=== PATIENT | female | born 1995 | race Caucasian/White ===

== ENCOUNTER 2019-11-03 10:01 | Emergency (ER) | payer SELFPAY ==
--- NOTE | 2019-11-03 10:32 | ER Document Report ---
ED Medical Screen (RME) - General Chief Complaint: Numbness of Arm Stated Complaint: RIGHT ARM NUMBNESS Time Seen by Provider: 11/03/19 10:26 Primary Care Provider: RAHUL BAJWA MD [Primary Care Provider] - Follow up as needed Mode of Arrival: Ambulatory Notes: 24-year-old female presented to ED for complaint of numbness from the elbow to the fingers. She states that she was in the hospital in August for an infection to the arm due to IV drug use of cocaine about 3 months ago. She states she has not used any drugs at all in the last 3 months. She states she left AMA on September 12 when they wanted to keep her for another week. She states she had to go home and feed her family so she left AMA. She states she went to the orthopedic yesterday concerning her left shoulder that needs some repair due to rotator cuff injury and [id number] in the shoulder. Patient states that when she went to the doctor he told her that she needed to go to the doctor the hospital concerning the pain and her right arm because it was probably a medial nerve injury. Patient is alert oriented respirations regular nonlabored speaking in full sentences. I have greeted and performed a rapid initial assessment of this patient. A comprehensive ED assessment and evaluation of the patient, analysis of test results and completion of medical decision making process will be conducted by an additional ED providers. TRAVEL OUTSIDE OF THE [place] IN LAST 30 DAYS: No - Related Data Allergies/Adverse Reactions: No Known Allergies Allergy (Unverified 11/03/19 10:29) Doctor's Discharge - Discharge Referrals: RAHUL BAJWA MD [Primary Care Provider] - Follow up as needed
--- NOTE | 2019-11-03 11:02 | RADIOLOGY REPORT (SQ) ---
EXAM DESCRIPTION: ELBOW RIGHT OVER 2 VIEWS COMPLETED DATE/TIME: 11/03/2019 10:53 am REASON FOR STUDY: Numbness to the right arm and hand COMPARISON: None. NUMBER OF VIEWS: Four view. TECHNIQUE: AP, lateral, and both oblique radiographic images acquired of the right elbow. LIMITATIONS: None. FINDINGS: MINERALIZATION: Normal. BONES: No acute fracture or dislocation. No worrisome bone lesions. No significant osteophytes. JOINT: No effusions. SOFT TISSUES: No soft tissue swelling. No foreign body. OTHER: No other significant finding. IMPRESSION: NEGATIVE STUDY OF THE RIGHT ELBOW. NO EXPLANATION FOR PAIN. TECHNICAL DOCUMENTATION: JOB ID: [id number] 2010 [employer]- All Rights Reserved Reading location - IP/workstation name: [email or web address]
--- NOTE | 2019-11-03 11:02 | RADIOLOGY REPORT (SQ) ---
EXAM DESCRIPTION: SHOULDER RIGHT 2 OR MORE VIEWS COMPLETED DATE/TIME: 11/03/2019 10:52 am REASON FOR STUDY: Numbness to the right arm and hand COMPARISON: None. NUMBER OF VIEWS: Three views. TECHNIQUE: Internal rotation, external rotation, and Y view images acquired of the right shoulder. LIMITATIONS: None. FINDINGS: MINERALIZATION: Normal. BONES: No acute fracture. No worrisome bone lesions. JOINTS: No dislocation. VISUALIZED LUNGS AND RIBS: No pneumothorax. No rib fracture. SOFT TISSUES: No radiopaque foreign body. OTHER: No other significant finding. IMPRESSION: NEGATIVE STUDY OF THE RIGHT SHOULDER. NO RADIOGRAPHIC EVIDENCE OF ACUTE INJURY. TECHNICAL DOCUMENTATION: JOB ID: [id number] 2010 [employer]- All Rights Reserved Reading location - IP/workstation name: [email or web address]
[2019-11-03] MEDS ORDERED: ACETAMINOPHEN 325 MG TABLET PO ONE (11:03)
[2019-11-03 11:46] LABS: ABSOLUTE LYMPHOCYTES (AUTO) 1.6 10^3/uL (0.5-4.7); ABSOLUTE MONOCYTES (AUTO) 0.4 10^3/uL (0.1-1.4); ABSOLUTE NEUT (AUTO) 3.3 10^3/uL (1.7-8.2); BASOPHILS % (AUTO) 0.6 % (0-2); EOSINOPHILS % (AUTO) 0.7 % (0-6); HEMATOCRIT 33.6 % (36.0-47.0); LYMPHOCYTES % (AUTO) 29.4 % (13-45); MEAN CORPUSCULAR HGB CONC 32.9 g/dL (32.0-36.0); MEAN CORPUSCULAR VOLUME 82 fl (80-97); MONOCYTES % (AUTO) 7.8 % (3-13); PLATELET COUNT 238 10^3/uL (150-450); RED BLOOD COUNT 4.09 10^6/uL (3.72-5.28); RED CELL DISTRIBUTION WIDTH 17.4 % (11.5-14.0); SEGMENTED NEUTROPHILS % (AUTO) 61.5 % (42-78); TOTAL CELLS COUNTED % (AUTO) 100 %; WHITE BLOOD COUNT 5.4 10^3/uL (4.0-10.5)
[2019-11-03 12:18] LABS: APPEARANCE,URINE SLIGHTLY-CLOUDY; BILIRUBIN,URINE NEGATIVE (NEGATIVE); COLOR,URINE YELLOW; GLUCOSE, URINE NEGATIVE (NEGATIVE); KETONES,URINE NEGATIVE (NEGATIVE); PROTEIN,URINE NEGATIVE (NEGATIVE); URINE SPECIFIC GRAVITY 1.019; UROBILINOGEN,URINE NEGATIVE mg/dL (<2.0)
[2019-11-03 12:19] LABS: ALBUMIN 3.8 g/dL (3.5-5.0); ALKALINE PHOSPHATASE 48 U/L (38-126); ANION GAP 8 (5-19); ASPARTATE AMINO TRANSFERASE 20 U/L (14-36); BILIRUBIN,DIRECT 0.2 mg/dL (0.0-0.4); BILIRUBIN,TOTAL 0.5 mg/dL (0.2-1.3); BLOOD UREA NITROGEN 11 mg/dL (7-20); CALCIUM 8.9 mg/dL (8.4-10.2); CARBON DIOXIDE 23 mmol/L (22-30); CHLORIDE 107 mmol/L (98-107); GLUCOSE 83 mg/dL (75-110); POTASSIUM 4.4 mmol/L (3.6-5.0); TOTAL PROTEIN 6.9 g/dL (6.3-8.2)
[2019-11-03 12:34] LABS: BACTERIA,URINE TRACE /HPF; RBC,URINE 0-1 /HPF
[2019-11-03 12:47] LABS: URINE AMPHETAMINES SCREEN NEGATIVE; URINE BARBITURATES SCREEN NEGATIVE; URINE BENZODIAZEPINES SCREEN NEGATIVE; URINE COCAINE SCREEN NEGATIVE; URINE MARIJUANA (THC) SCREEN NEGATIVE; URINE METHADONE SCREEN NEGATIVE; URINE PHENCYCLIDINE SCREEN NEGATIVE
[2019-11-03] MEDS ORDERED: DEXAMETHASONE SOD PHOS INJ 10 MG/1 ML VIAL IV ONE (13:23)
--- NOTE | 2019-11-03 13:29 | ER Document Report ---
ED General - General Chief Complaint: Arm Pain Stated Complaint: RIGHT ARM NUMBNESS Time Seen by Provider: 11/03/19 10:26 Primary Care Provider: RAHUL BAJWA MD [CONSULTING STAFF] - Follow up as needed Mode of Arrival: Ambulatory TRAVEL OUTSIDE OF THE [place] IN LAST 30 DAYS: No - HPI Notes: Patient is a 24 a female presents emergency department for evaluation of right hand numbness and burning. She states that she was admitted to the hospital at [facility] in August. She had an abscess from IV drug abuse, cocaine. She left AGAINST MEDICAL ADVICE. It was incised and drained inpatient. The patient states that she did not have immediate numbness, but for about a month she is having intermittent numbness over the palm of her hand and the ventral aspect of her right forearm. She denies weakness. She has been abstaining from drugs of any sort. No fevers or chills. No nausea or vomiting. - Related Data Allergies/Adverse Reactions: No Known Allergies Allergy (Unverified 11/03/19 10:29) Home Medications: abilify, prozac, subutex Past Medical History - General Information source: Patient - Social History Smoking Status: Current Some Day Smoker - Vaping Chew tobacco use (# tins/day): No Frequency of alcohol use: Social Drug Abuse: None, Other - Former IV drug abuse Family History: Reviewed & Not Pertinent Patient has suicidal ideation: No Patient has homicidal ideation: No Psychiatric Medical History: Reports: Hx Depression Past Surgical History: Reports: Hx Orthopedic Surgery - left shoulder Review of Systems - Review of Systems Musculoskeletal: See HPI Neurological/Psychological: See HPI -: Yes All other systems reviewed and negative Physical Exam - Vital signs Vitals: Temp Pulse Resp BP Pulse Ox 98.4 F 92 18 126/80 H 99 11/03/19 10:34 11/03/19 10:34 11/03/19 10:34 11/03/19 10:34 11/03/19 10:34 - Notes Notes: This is a very pleasant 24-year-old female who appears her stated age in no acu te distress. Has normocephalic and atraumatic, pupils are equal round, reactive to light. Oral mucosa is moist. Heart is regular rate and rhythm, lungs encrustation bilaterally. Focus on the right upper extremity yields no obvious signs of deformity. She is for intermission of the shoulder, elbow, wrist, fingers, thumb. Radial pulse 2+, capillary refill is brisk. She has plus 5 out of 5 strength in abduction and abduction of the fingers, opposition, flexion, extension of the thumb. Capillary refill is brisk. Sensation is intact to pressure throughout. She has diminished sensation to light touch throughout the distribution of the median nerve, specifically the palmar aspects of the first through third digits. Course - Re-evaluation Re-evalutation: 11/03/19 13:28 Patient presents to the emergency department for evaluation. She presented here because she thought an MRI and full work-up, as well as treatment, could be instituted. I explained to the patient that an MRI was not emergently indicated. Certainly an EMG would be, and this could be ordered by her primary care provider. At any rate, we will treat her with Neurontin for her nerve pain, she is given Decadron to see if any inflammation could be the cause of her symptoms. Otherwise her lab work is unremarkable. I told her she needs to follow-up with primary care and she is amenable to this plan. She is to return to the ED with worsening or new concerning symptoms of any sort. - Vital Signs Vital signs: Temp Pulse Resp BP Pulse Ox 98.4 F 92 18 126/80 H 99 11/03/19 10:34 11/03/19 10:34 11/03/19 10:34 11/03/19 10:34 11/03/19 10:34 - Laboratory Result Diagrams: 11/03/19 11:34 11/03/19 11:34 Laboratory results interpreted by me: 11/03/19 11:34 Hgb 11.0 L Hct 33.6 L RDW 17.4 H Discharge - Discharge Clinical Impression: Numbness and tingling in right hand Condition: Stable Disposition: HOME, SELF-CARE Instructions: Numbness or Paresthesia ([facility]) Additional Instructions: Your findings are consistent with a loss of sensation from the median nerve. You have been treated with steroids, will be sent in a prescription of Neurontin to help with your tingling and pain. You will need further testing, likely an EMG, which can be ordered by her primary care provider. Please follow-up with them this week. Take Neurontin as directed. Return to the emergency department with worsening or new concerning symptoms of any sort. Referrals: RAHUL BAJWA MD [CONSULTING STAFF] - Follow up as needed
[2019-11-03 14:08] VITALS: BP 124/78
== END 2019-11-03 14:08 | disposition home or self-care (01) ==
LOC: ER 10:01
DX: R20.0 Anesthesia of skin (principal); M79.601 Pain in right arm; F17.299 Nicotine dependence, other tobacco product, with unspecified nicotine-induced disorders
CPT/HCPCS: 99284; 96374; 36415; 87040; 85025; 80053; 81001; 80307; 73080; 73030; J1100